=== PATIENT | male | born 2000 | race Caucasian/White ===

== ENCOUNTER 2023-12-04 11:28 | Day surgery (SDC) | payer OTHER ==
[2023-11-23 08:36] VITALS: BMI 32.3
[2023-12-04] MEDS ORDERED: PROPOFOL 40 ML ONE (12:52)
[2023-12-04] MEDS ORDERED: Lidocaine 1% PF 5 ML VIAL ONE (12:52)
== END 2023-12-04 14:22 | disposition home or self-care (01) ==
LOC: CSHSDC 11:28
PROVIDERS: ATTEND Surgery
DX: K21.9 Gastro-esophageal reflux disease without esophagitis (principal); K29.50 Unspecified chronic gastritis without bleeding; K31.89 Other diseases of stomach and duodenum; K44.9 Diaphragmatic hernia without obstruction or gangrene; F84.0 Autistic disorder; J45.901 Unspecified asthma with (acute) exacerbation; Z79.899 Other long term (current) drug therapy
CPT/HCPCS: 88305; J2704